=== PATIENT | male | born 1995 | race African-American/Black ===

== ENCOUNTER 2017-03-29 13:25 | Emergency (ER) | payer SELFPAY ==
[~2017-03-29] VITALS: Ht 190.5 cm; Wt 79.5 kg
[2017-03-29 13:26] VITALS: BP 136/70; PULSE 85; TEMP 99.1
== END 2017-03-29 15:40 | disposition home or self-care (01) ==
LOC: COL.ER 13:25
DX: S52.022A Displaced fracture of olecranon process without intraarticular extension of left ulna, initial encounter for closed fracture (principal); S16.1XXA Strain of muscle, fascia and tendon at neck level, initial encounter; V48.6XXA Car passenger injured in noncollision transport accident in traffic accident, initial encounter; Y92.410 Unspecified street and highway as the place of occurrence of the external cause